=== PATIENT | male | born 1980 | race Caucasian/White ===

== ENCOUNTER 2023-05-21 18:02 | Emergency (ER) | payer BC, SELFPAY ==
[2023-05-21 18:08] VITALS: BP 125/75; PULSE 86; RESP 16; TEMP 36.5; O2SAT 97; BMI 23.5
--- NOTE | 2023-05-21 18:27 | ED.EYEPROB ---
HPI - Eye Problem General Chief complaint: Eye Problems Stated complaint: something in Right eye Time Seen by Provider: 05/21/23 18:06 History of Present Illness HPI Narrative: This 42-year-old male comes in with pain in his right eye. 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 He states that it feels better to keep his eye open. His tetanus status is up-to-date. Related Data Previous Rx's Medication Instructions Recorded ketorolac 0.5 % eye drops (Acular) 1 drp ophthalmic (eye) QID #5 mL 05/21/23 Allergies Allergy/AdvReac Type Severity Reaction Status Date / Time No Known Drug Allergies Allergy Verified 05/21/23 18:11 Review of Systems Status of ROS: Reports: 10 or more systems reviewed and unremarkable except as noted in History and below Narrative: Constitutional: No fevers, no weight gain or loss. Eyes: No discharge. No vision changes. Right eye pain as described above. HENT: No congestion, no sore throat, no ear pain. Cardiovascular: No chest pain, no palpitations. Respiratory: No shortness of breath, no wheezes, no cough. Gastrointestinal: No abdominal pain, no vomiting, no diarrhea. Genitourinary: No dysuria, no hematuria. Musculoskeletal: Normal range of motion. Skin: No rashes, no pruritis. Neurological: No dizziness, weakness, sensory change, speech change. Endo/Heme/Allergies: No bruising or bleeding. No polydipsia. Pysch: no suicidality, no anxiety, no insomnia. All other systems reviewed and are negative. Exam Narrative: Exam Narrative: Constitutional: Well-developed, well-nourished, no acute distress. HEENT: Normocephalic, atraumatic. Right eye is examined under magnification and appears normal. I did talita the eyelid and found a small metal foreign object sitting on inner aspect of the right upper eyelid. Neck: Normal range of motion. Nontender. Supple. Heart: Intact distal pulses. Lungs: No chest discomfort. No wheezes, rhonchi, or rales. Abdomen: Nontender. Back: Normal range of motion. Extremities: Normal range of motion. No injury. Skin: Intact. No rash. Warm. No erythema or pallor. Neurologic: No altered sensation. No weakness. Alert and oriented. Psychiatric: No suicidality. No anxiety or depression. No insomnia. Nursing notes and vitals signs are reviewed. Const: Vital Signs, click to edit/add: Vital Signs - 24 hr 05/21/23 18:08 Temperature 97.7 F Pulse Rate [Pulse Oximeter] 86 Respiratory Rate 16 Blood Pressure [Ri ght Upper Arm] 125/75 Pulse Oximetry 97 Oxygen Delivery Me thod Room Air Course Vital Signs Vital signs: Initial Vital Signs Temperature 97.7 F 05/21/23 18:08 Temperature Source Temporal Artery Scan 05/21/23 18:08 Pulse Rate 86 05/21/23 18:08 Respiratory Rate 16 05/21/23 18:08 Blood Pressure 125/75 05/21/23 18:08 Blood Pressure Mean 91 05/21/23 18:08 Blood Pressure Position Supine 05/21/23 18:08 Pulse Oximetry 97 05/21/23 18:08 Oxygen Delivery Method Room Air 05/21/23 18:08 Vital Signs Temperature 97.7 F 05/21/23 18:08 Pulse Rate 86 05/21/23 18:08 Respiratory Rate 16 05/21/23 18:08 Blood Pressure 125/75 05/21/23 18:08 Pulse Oximetry 97 05/21/23 18:08 Oxygen Delivery Method Room Air 05/21/23 18:08 Temperature 97.7 F 05/21/23 18:08 Pulse Rate 86 05/21/23 18:08 Respiratory Rate 16 05/21/23 18:08 Blood Pressure 125/75 05/21/23 18:08 Pulse Oximetry 97 05/21/23 18:08 Oxygen Delivery Method Room Air 05/21/23 18:08 MDM - Eye Problem MDM Narrative Medical decision making narrative: This patient did received tetracaine for anesthesia and then was examined under magnification including a slit lamp exam. His I showed no sign of injury or foreign object except for what was found under the right eyelid. I did use floor seen dye. There was no sign of dye uptake under Wood's lamp examination. The patient received a prescription for ketorolac ophthalmic solution. Instructions were given regarding eye care. Discharge Plan Discharge Clinical Impression: Corneal abrasion Patient Disposition: Home, Self-Care Condition: Improved Additional Instructions: Use medication as needed and directed. Follow up with MD return if worsening. Prescriptions: New ketorolac [Acular] 0.5 % drops 1 drp ophthalmic (eye) QID Qty: 5 0RF Stand Alone Forms: MyHealth Info Instructions
== END 2023-05-21 18:52 | disposition home or self-care (01) ==
LOC: ED 18:52
PROVIDERS: Emergency Provider Emergency Medicine Emergency Medical Services
DX: S05.01XA Injury of conjunctiva and corneal abrasion without foreign body, right eye, initial encounter (principal)
CPT/HCPCS: 99283; 99284; A9270